=== PATIENT | female | born 1980 | race Hispanic/Latino ===

== ENCOUNTER 2022-09-24 22:29 | Emergency (ER) | payer OTHER ==
[~2022-09-24] VITALS: Ht 160 cm; Wt 77.1 kg
[2022-09-25] MEDS ORDERED: SULFAMETHOX-TMP DS 800/160 TAB PO SCH (00:30)
[2022-09-25] MEDS ORDERED: HYDROCODONE/ACETAMINOPHEN 5/325 MG TAB PO ONE (00:30)
[2022-09-25] MEDS ORDERED: CEFTRIAXONE 1G VIAL IM ONE (00:30)
[2022-09-25] MEDS ORDERED: KETOROLAC 60 MG VIAL (30MG/ML) IM ONE (00:30)
[2022-09-25] MEDS ORDERED: AMOX1TAB16 PO (00:47)
[2022-09-25] MEDS ORDERED: SULF1TAB42 PO (00:47)
[2022-09-25] MEDS ORDERED: NAPR-1023 PO (00:47)
[2022-09-25] MEDS ORDERED: ACET-2079 PO (00:48)
[2022-09-25 01:20] VITALS: BP 120/68
== END 2022-09-25 01:23 | disposition home or self-care (01) ==
LOC: EDH 22:29
DX: N61.0 Mastitis without abscess (principal); Z90.710 Acquired absence of both cervix and uterus; Z79.899 Other long term (current) drug therapy; Z98.890 Other specified postprocedural states
CPT/HCPCS: 99284; 71045; 96372 ×2; 93005; J0696; J1885